=== PATIENT | female | born 1990 | race Caucasian/White ===

== ENCOUNTER 2016-07-22 14:44 | Emergency (ER) | payer SELFPAY ==
[~2016-07-22] VITALS: Ht 160 cm; Wt 50.0 kg
[~2016-07-22 14:44] MED LIST: OMEP20TA39 PO; PRIL20CA PO
[2016-07-22 14:45] VITALS: BP 125/66; PULSE 86; RESP 17; TEMP 98.1; O2SAT 99
--- NOTE | 2016-07-22 14:52 | PD ---
HPI Chief Complaint: Related Problem Time Seen by Provider: 14:52 Travel History International Travel<30 days: No Contact w/Intl Traveler<30days: No Traveled to known affect area: No History of Present Illness HPI 25-year-old female partially 9 weeks presents to the emergency department with complaints of cramping in the lower abdomen more on the right than the left. Patient was recently seen and exam, by an OB and had an ultrasound at that time showing a normal intrauterine with a heart rate of 162. She was told if the pain worsen that she should be evaluated which is why she is here today. Patient denies fever, chills, nausea, or vomiting, but she states it is and dry use secondary to the pain earlier today. Patient denies urinary symptoms. Patient denies any vaginal bleeding or discharge. This is the patient's first and she is admittedly very anxious. She has no known drug allergies. PFSH Past Medical History Diminished Hearing: No Gastrointestinal Disorders: Yes (GASTROENTERITIS) GERD: Yes ?: LMP: 04/2016 Social History Alcohol Use: No Tobacco Use: Yes (06/20 PPD) Substance Use: No Allergies-Medications (Allergen,Severity, Reaction): Coded Allergies: No Known Allergies (Unverified , 07/22/16) Reported Meds & Prescriptions Reported Meds & Active Scripts Active Hm Omeprazole (Omeprazole) 20 Mg Tab 20 Mg PO DAILY 30 Days Reported Prilosec (Omeprazole) 20 Mg Cap 20 Mg PO DAILY Review of Systems Except as stated in HPI: all other systems reviewed are Neg General / Constitutional: No: Fever Eyes: No: Visual changes HENT: No: Headaches Cardiovascular: No: Chest Pain or Discomfort Respiratory: No: Shortness of Breath Gastrointestinal: Positive: Other (patient admits to some dry heaves earlier today), No: Nausea, Vomiting, Diarrhea, Abdominal Pain Genitourinary: No: Dysuria Musculoskeletal: No: Pain Skin: No Rash Neurologic: No: Weakness Psychiatric: No: Depression Endocrine: No: Polydipsia Hematologic/Lymphatic: No: Easy Bruising Physical Exam Narrative GENERAL: Patient is anxious but in no acute distress. SKIN: Warm and dry. Normal color. Normal turgor. HEAD: Atraumatic. Normocephalic. EYES: Pupils equal and round. No scleral icterus. No injection or drainage. ENT: No nasal bleeding or discharge. Mucous membranes pink and moist. Pharynx is normal. NECK: Trachea midline. Supple and nontender. CARDIOVASCULAR: Regular rate and rhythm. No murmurs gallops or rubs. RESPIRATORY: No accessory muscle use. Clear to auscultation. Breath sounds equal bilaterally. GASTROINTESTINAL: Abdomen soft, mild lower abdominal tenderness, nondistended. No specific point tenderness or rebound. Hepatic and splenic margins not palpable. MUSCULOSKELETAL: Extremities without clubbing, cyanosis, or edema. No obvious deformities. NEUROLOGICAL: Awake and alert. No obvious cranial nerve deficits. Motor grossly within normal limits. Five out of 5 muscle strength in the arms and legs. Normal speech. PSYCHIATRIC: Appropriate mood and affect; insight and judgment normal. Data Data Last Documented VS Vital Signs Date Time Temp Pulse Resp B/P Pulse Ox O2 Delivery O2 Flow Rate FiO2 07/22/16 14:45 98.1 86 17 125/66 99 Orders Beta Hcg (Quant/Titer) (07/22/16 14:54) Complete Blood Count With Diff (07/22/16 14:54) Comprehensive Metabolic Panel (07/22/16 14:54) Urinalysis - C+S If Indicated (07/22/16 14:54) Iv Access Insert/Monitor (07/22/16 14:54) Ecg Monitoring (07/22/16 14:54) Sodium Chloride 0.9% Flush (Ns Flush) (07/22/16 15:00) Complete Rh (07/22/16 14:54) Us Pelvis (Ques Pr/Ect)W Trans (07/22/16 ) Labs Laboratory Tests Test 07/22/16 15:05 White Blood Count 12.1 TH/MM3 Red Blood Count 4.99 MIL/MM3 Hemoglobin 14.7 GM/DL Hematocrit 43.3 % Mean Corpuscular Volume 86.9 FL Mean Corpuscular Hemoglobin 29.5 PG Mean Corpuscular Hemoglobin 33.9 % Concent Red Cell Distribution Width 13.2 % Platelet Count 235 TH/MM3 Mean Platelet Volume 8.4 FL Neutrophils (%) (Auto) 73.1 % Lymphocytes (%) (Auto) 16.5 % Monocytes (%) (Auto) 8.1 % Eosinophils (%) (Auto) 2.1 % Basophils (%) (Auto) 0.2 % Neutrophils # (Auto) 8.8 TH/MM3 Lymphocytes # (Auto) 2.0 TH/MM3 Monocytes # (Auto) 1.0 TH/MM3 Eosinophils # (Auto) 0.2 TH/MM3 Basophils # (Auto) 0.0 TH/MM3 CBC Comment DIFF FINAL Differential Comment Urine Color YELLOW Urine Turbidity HAZY Urine pH 6.5 Urine Specific [place] 1.025 Urine Protein TRACE mg/dL Urine Glucose (UA) NEG mg/dL Urine Ketones NEG mg/dL Urine Occult Blood NEG Urine Nitrite NEG Urine Bilirubin NEG Urine Urobilinogen LESS THAN 2.0 MG/DL Urine Leukocyte Esterase TRACE Urine RBC 3 /hpf Urine WBC 5 /hpf Urine Squamous Epithelial 9 /hpf Cells Urine Amorphous Sediment RARE Urine Bacteria RARE /hpf Urine Mucus FEW /lpf Microscopic Urinalysis Comment CULT NOT INDICATED Sodium Level 138 MEQ/L Potassium Level 3.6 MEQ/L Chloride Level 102 MEQ/L Carbon Dioxide Level 27.1 MEQ/L Anion Gap 9 MEQ/L Blood Urea Nitrogen 8 MG/DL Creatinine 0.61 MG/DL Estimat Glomerular Filtration 120 ML/MIN Rate Random Glucose 75 MG/DL Calcium Level 9.3 MG/DL Total Bilirubin 0.5 MG/DL Aspartate Amino Transf 13 U/L (AST/SGOT) Alanine Aminotransferase 21 U/L (ALT/SGPT) Alkaline Phosphatase 85 U/L Total Protein 8.3 GM/DL Albumin 4.5 GM/DL Human Chorionic Gonadotropin, [address] MIU/ML Quant Blood Type O POSITIVE Rho(D) Type POSITIVE MDM Medical Decision Making Medical Screen Exam Complete: Yes Emergency Medical Condition: Yes Differential Diagnosis 9 week . Abdominal cramping. Possible threatened . Possible ectopic. Narrative Course Patient is medically stable at time of exam. Labs ordered including CBC, CMP, urinalysis, serum hCG, blood type and screen is ordered. Pelvic ultrasound is ordered. CBC shows mild leukocytosis of 12.1. CMP is within normal limits. HCG is 83, 084. Urinalysis is within normal limits. Last 24 hours Impressions Pelvis Ultrasound 07/22/16 0000 Signed Impressions: Service Date/Time: Friday, July 22, 2016 16:48 - CONCLUSION: 1. Single viable intrauterine of 8 weeks and 5 days. Small subchorionic hemorrhage adjacent to gestational sac. Aramis Tate MD Diagnosis Primary Impression: Abdominal cramping affecting Additional Impression: Referrals: [facility] call for appointment Patient Instructions: Abdominal Pain in (ED), General Instructions Disposition: 01 DISCHARGE HOME Condition: Danial Howell Jul 22, 2016 14:52
[2016-07-22] MEDS ORDERED: SODIUM CHLORIDE 0.9% FLUSH 5 ML FLUSH IVF PRN (15:00)
[2016-07-22 15:31] LABS: BACTERIA, URINE RARE /hpf; BLOOD, URINE NEG (NEG); COMMENT (UR) CULT NOT INDICATED; CULTURE IF INDICATED CULT NOT INDICATED; GLUCOSE,URINE NEG (NEG); KETONE, URINE NEG (NEG); MUCUS URINE FEW /lpf (OCC); NITRITE,URINE NEG (NEG); PH, URINE 6.5 (5.0-8.5); SQUAMOUS EPITHELIAL CELL URINE 9 /hpf (0-5); URINE COLOR YELLOW (YELLW/STRAW)
[2016-07-22 15:32] LABS: AUTOMATED NEUTROPHIL # 8.8 TH/MM3 (1.8-7.7); BASOPHIL % 0.2 % (0.0-2.0); EOSINOPHIL # 0.2 TH/MM3 (0-0.4); EOSINOPHIL % 2.1 % (0.0-4.0); HEMATOCRIT 43.3 % (35.0-46.0); HEMO FLAGS DIFF FINAL; LYMPH % 16.5 % (9.0-44.0); MEAN CELL VOLUME 86.9 FL (80.0-100.0); MEAN CORPUSCULAR HEMOGLOBIN 29.5 PG (27.0-34.0); MEAN CORPUSCULAR HGB CONC 33.9 % (32.0-36.0); MONO % 8.1 % (0.0-8.0); NEUT % 73.1 % (16.0-70.0); PLATELET COUNT 235 TH/MM3 (150-450); RED BLOOD COUNT 4.99 MIL/MM3 (4.00-5.30); RED CELL DISTRIBUTION WIDTH 13.2 % (11.6-17.2); WHITE BLOOD COUNT 12.1 TH/MM3 (4.0-11.0)
[2016-07-22 15:59] LABS: ANION GAP 9 MEQ/L (5-15); AST (GOT) 13 U/L (15-37); BICARBONATE 27.1 MEQ/L (21.0-32.0); BLOOD UREA NITROGEN 8 MG/DL (7-18); CHLORIDE 102 MEQ/L (98-107); GLOMERULAR FILTRATION RATE 120 ML/MIN (>89); POTASSIUM 3.6 MEQ/L (3.5-5.1); SODIUM (NA) 138 MEQ/L (136-145)
[2016-07-22 16:17] LABS: ALKALINE PHOSPHATASE 85 U/L (45-117); ALT (GPT) 21 U/L (10-53); BETA HCG QUANT 83084 MIU/ML (0-5); TOTAL BILIRUBIN ADULT 0.5 MG/DL (0.2-1.0)
--- NOTE | 2016-07-22 17:45 | RADRPT ---
EXAM DATE/TIME: 07/22/2016 16:48 [facility] COMPARISON: No previous studies available for comparison. INDICATIONS : Pelvic pain. LAB(S): Beta-hC MEDICAL HISTORY : Gastroesophageal reflux disease. . Gastroenteritis. Kidney failure. SURGICAL HISTORY : No surgical history. ENCOUNTER: Initial ACUITY: 1 day PAIN SCORE: 6/10 LOCATION: Bilateral pelvis MEASUREMENTS: UTERUS: 9.1 x 6.3 x 7.4 cm ENDOMETRIAL STRIPE: 15 mm RIGHT OVARY: 3.8 x 2.4 x 2.8 cm LEFT OVARY: 2.3 x 1.5 x 1.6 cm FINDINGS: There is a single viable intrauterine with gestational age 8 weeks and 5 days by crown-rump length. heart rate 159 beats per minute. There is a small subchorionic hemorrhage adjacent to gestational sac measuring up to 1.7 x 2.4 x 1.4 cm. Yolk sac visualized. Ovaries unremarkable. CONCLUSION: 1. Single viable intrauterine of 8 weeks and 5 days. Small subchorionic hemorrhage adjacent to gestational sac. Aramis Tate MD on July 22, 2016 at 17:41 Board Certified Radiologist. This report was verified electronically.
== END 2016-07-22 18:37 | disposition home or self-care (01) ==
LOC: NEPE 14:44
DX: O26.891 Other specified pregnancy related conditions, first trimester (principal); Z72.0 Tobacco use; Z3A.08 8 weeks gestation of pregnancy
CPT/HCPCS: 76700; 76817; 80053; 81001; 84702; 85025; 86901

== ENCOUNTER 2017-01-07 15:24 | Emergency (ER) | payer MEDICAID ==
[~2017-01-07] VITALS: Ht 160 cm; Wt 63.5 kg
[2017-01-07] MEDS ORDERED: ACETAMINOPHEN 325 MG TAB PO ONE (17:00)
[2017-01-07] MEDS ORDERED: TERBUTALINE INJ 1 MG/ML AMP SQ ONE (17:00)
--- NOTE | 2017-01-07 18:05 | PD ---
HPI Chief Complaint Abdominal pain Pain in vaginal area Date Seen: Jan 07, 2017 Time Seen: 17:00 Travel History International Travel<30 Days: No Contact w/Intl Traveler<30Days: No Known Affected Area: No History of Present Illness HPI Patient is a 26-year-old at 33 weeks 0 days who presents to triage complaining of abdominal pain and pain in her vaginal area for the past 1 1/2 hours. She describes the pain as sharp and crampy; the pain comes and goes in regular intervals. Patient denies vaginal bleeding and gush of fluid. Patient endorses movement. Patient admits to nausea but denies vomiting. Patient has been under a lot of stress; she states that she has not been sleeping and received unfavorable paternity test results today. Patient admits to "shakes"/ chills but denies fever. Patient says that she has been receiving regular care. She denies any complications during this . Para: 0 : 2 Miscarriage: 1 (Passed naturally) History Past Medical History Narrative Medical "Kindey failure" x multiple - resolved as per patient Obstetric History Obstetric History G1 miscarriage G2 current; no concerns Family History Family History: Negative Social History Alcohol Use: No Tobacco Use: Yes (1 pack/3 days) Substance Abuse: No Allergies-Medications (Allergen,Severity, Reaction): Coded Allergies: No Known Allergies (Unverified , 01/07/17) Home Meds Active Scripts Omeprazole (Hm Omeprazole)20 Mg Tab20 Mg PO DAILY 30 Days Ref 2 Prov:Bhavesh Carter MD 01/20/14 Reported Medications Omeprazole 20 mg (Prilosec 20 mg)20 Mg Cap20 Mg PO DAILY 01/20/14 Review of Systems General / Constitutional: Chills, No: Fever HENT: No: Headaches Cardiovascular: No: Chest Pain or Discomfort, Palpitations Respiratory: No: Short of Breath Gastrointestinal: Nausea, No: Vomiting Genitourinary: No: Urgency, Frequency Musculoskeletal: Cramping, Edema (Feet swelling ) Psychiatric: No: Anxiety Physical Exam Narrative GENERAL: Well-nourished, well-developed patient. SKIN: Warm and dry. HEAD: Normocephalic and atraumatic. EYES: No scleral icterus. No injection or drainage. ENT: No nasal drainage noted. Mucous membranes pink. Airway patent. NECK: Supple, trachea midline. No JVD. CARDIOVASCULAR: Regular rate and rhythm without murmurs, gallops, or rubs. RESPIRATORY: Breath sounds equal bilaterally. No accessory muscle use. ABDOMEN/GI: Abdomen soft, non-tender, bowel sounds present, no rebound, no guarding Gravid to 33 weeks size GENITOURINARY: External Genitalia: intact and normal in appearance Dilatation: 0; closed Effacement: 0; thick Membranes: Intact Contractions: Irregular FHT's: Category: 1 Baseline: 140 Reactive: Reactive Variability: Moderate Decels: None EXTREMITIES: No cyanosis. Minimal LE edema. BACK: Nontender without obvious deformity. No CVA tenderness. NEUROLOGICAL: Awake and alert. Motor and sensory grossly within normal limits. Five out of 5 muscle strength in all muscle groups. Normal speech. Data Data Vital Signs Reviewed: Yes Orders Fentanyl Inj (Fentanyl Inj) (01/07/17 17:00) Vital Signs (Adult) .ON ADMISSION (01/07/17 16:46) ^ Labor Status (01/07/17 16:46) Urinalysis - C+S If Indicated (01/07/17 16:46) ^ Hydration (01/07/17 16:46) Acetaminophen (Tylenol) (01/07/17 17:00) Terbutaline Inj (Brethine Inj) (01/07/17 17:00) MDM Medical Record Reviewed: Yes Plan Patient is a 26-year-old at 33 weeks 0 days who presents to triage complaining of abdominal pain and pain in her vaginal area for the past 1 1/2 hours. Pre-Term Labor vs Round Ligament Pain * Fentanyl 50 mcg once IM * Terbutaline 0.25 mg once SQ * Acetaminophen 650 mg once PO * UA pending * Monitor vitals * Encourage PO hydration Diagnosis Diagnosis: Primary Impression: Abdominal cramping affecting Disposition: DISCHARGE HOME Condition: Good Luna Barbosa MD R1 Jan 07, 2017 18:05
== END 2017-01-07 18:36 | disposition home or self-care (01) ==
LOC: HOBED 15:24
DX: O26.899 Other specified pregnancy related conditions, unspecified trimester (principal); R10.9 Unspecified abdominal pain; R11.0 Nausea; O99.333 Smoking (tobacco) complicating pregnancy, third trimester; Z3A.33 33 weeks gestation of pregnancy; Z79.899 Other long term (current) drug therapy
CPT/HCPCS: 59025; 96372; 99284; J3010; J3105

== ENCOUNTER 2017-03-04 00:48 | Emergency (ER) | payer MEDICAID, OTHER ==
[2017-03-04 00:49] VITALS: BP 109/69; PULSE 76; RESP 16; TEMP 98; O2SAT 99
== END 2017-03-04 02:35 | disposition left against medical advice (07) ==
LOC: NED 00:48
DX: N94.9 Unspecified condition associated with female genital organs and menstrual cycle (principal)
CPT/HCPCS: 99281